=== PATIENT | female | born 1995 | race Caucasian/White ===

== ENCOUNTER 2016-12-17 20:46 | Emergency (ER) | payer OTHER ==
[~2016-12-17] VITALS: Ht 170.2 cm; Wt 54.6 kg
[~2016-12-17 20:46] MED LIST: LEVOTHYROXINE25 MCG PO; MIRALAX17 GM PO; MOTRIN600 MG PO; OXYCODONE HCL5 MG PO; PRILOSEC40 MG PO; ROBAXIN500 MG PO; ULTRAM50 MG PO; ZYRTEC10 M1 PO; [UNRECOGNIZED DRUG - REMARK]; [UNRECOGNIZED DRUG - REMARK]
[2016-12-17 22:09] LABS: HEMATOCRIT 36.9 % (36.0-46.0); MCH 30.3 PG (29.0-34.0); MCHC 33.1 G/DL (30.0-36.0); MCV 91.6 FL (83-99); MEAN PLAT.VOLUME 8.7 uM^3 (9.5-12.4); PLATELET COUNT 310 K/uL (156-360); RBC DIS.WIDTH-CV 12.1 % (11.8-14.6); RBC DIS.WIDTH-SD 40.5 % (39-53); RED BLOOD COUNT 4.03 M/uL (3.80-5.20); WHITE BLOOD COUNT 5.7 K/uL (4.1-10.2)
[2016-12-17 22:20] LABS: CHLORIDE 108 mEq/L (99-109); POTASSIUM 3.9 mEq/L (3.7-5.4); SODIUM 140 mEq/L (136-147)
[2016-12-17 22:22] LABS: GLUCOSE 92 mg/dL (70-99)
[2016-12-17 22:23] LABS: ANION GAP 10 MEQ/L (2-14)
[2016-12-17 22:25] LABS: ADD MIUA? YES; BILIRUBIN NEGATIVE; BLOOD NEGATIVE; COLOR YELLOW ((YELLOW)); GLUCOSE (STRIP) NEGATIVE; KETONES NEGATIVE; LEUKOCYTES NEGATIVE; NITRITE NEGATIVE; PROTEIN (STRIP) NEGATIVE; SPECIFIC GRAVITY 1.017 (1.000-1.030); UROBILINOGEN 0.2 MG/DL (0.2-1.0)
[2016-12-17 22:26] LABS: ALKALINE PHOSPHATASE 39 IU/L (3-129); GFR ESTIMATE (CALCULATED) > 59 mL/min/
[2016-12-17 22:27] LABS: UREA NITROGEN (BUN) 10 mg/dL (9-23)
[2016-12-17 22:34] LABS: QUANTITATIVE HCG < 4.0 MIU/ML
[2016-12-17 22:44] LABS: TOTAL BILIRUBIN 0.2 mg/dL (0.0-1.0)
[2016-12-17 22:55] LABS: AMORPHOUS URATES CRYSTALS 1+; BACTERIA NONE SEEN /HPF; EPITHELIAL CELLS 2+ /HPF; MUCUS NONE SEEN /LPF; RED BLOOD CELLS 0-5 /HPF (0-5); UCUL ADDED? NO; WHITE BLOOD CELLS 0-5 /HPF (0-5)
[2016-12-17] MEDS ORDERED: MODAFINIL200 MG PO (23:04)
[2016-12-17] MEDS ORDERED: NORCO 5/3251 TABLET PO (23:51)
[2016-12-17 23:58] VITALS: BP 110/65
== END 2016-12-18 00:12 | disposition home or self-care (01) ==
LOC: EME 20:46
PROVIDERS: Physician Assistant
DX: R10.2 Pelvic and perineal pain (principal); R10.32 Left lower quadrant pain; M54.5 Low back pain; R20.0 Anesthesia of skin; E03.9 Hypothyroidism, unspecified; Z91.14 Patient's other noncompliance with medication regimen; Z72.0 Tobacco use
CPT/HCPCS: 76857; 80053; 81003; 84443; 84702; 85027; 99281; 99284

== ENCOUNTER 2017-04-09 16:21 | Emergency (ER) | payer OTHER ==
[~2017-04-09] VITALS: Ht 172.7 cm; Wt 56.2 kg
[~2017-04-09 16:21] MED LIST changes: +MODAFINIL200 MG PO; +NORCO 5/3251 TABLET PO
[2017-04-09 17:35] LABS: HEMATOCRIT 35.1 % (36.0-46.0); MCH 30.7 PG (29.0-34.0); MCHC 33.6 G/DL (30.0-36.0); MCV 91.4 FL (83-99); MEAN PLAT.VOLUME 8.7 uM^3 (9.5-12.4); PLATELET COUNT 267 K/uL (156-360); RBC DIS.WIDTH-SD 40.6 % (39-53); RED BLOOD COUNT 3.84 M/uL (3.80-5.20); WHITE BLOOD COUNT 5.7 K/uL (4.1-10.2)
[2017-04-09 17:48] LABS: CHLORIDE 104 mEq/L (99-109); SODIUM 135 mEq/L (136-147)
[2017-04-09 17:51] LABS: GLUCOSE 106 mg/dL (70-99)
[2017-04-09 17:52] LABS: ANION GAP 8 MEQ/L (2-14)
[2017-04-09 17:53] LABS: TOTAL BILIRUBIN 0.2 mg/dL (0.0-1.0)
[2017-04-09 17:54] LABS: ALKALINE PHOSPHATASE 41 IU/L (3-129); GFR ESTIMATE (CALCULATED) > 59 mL/min/
[2017-04-09 17:55] LABS: UREA NITROGEN (BUN) 20 mg/dL (9-23)
[2017-04-09] MEDS ORDERED: VENTOLIN HFA18 GM IH (18:38)
[2017-04-09] MEDS ORDERED: TESSALON200 MG PO (18:38)
[2017-04-09] MEDS ORDERED: MOTRIN800 MG PO (18:38)
[2017-04-09 19:04] VITALS: BP 119/63
== END 2017-04-09 19:05 | disposition home or self-care (01) ==
LOC: EME 16:21
PROVIDERS: Nurse Practitioner Family
DX: R07.89 Other chest pain (principal); J06.9 Acute upper respiratory infection, unspecified; E03.9 Hypothyroidism, unspecified; F17.200 Nicotine dependence, unspecified, uncomplicated
CPT/HCPCS: 71020; 80053; 85027; 93005; 94640; 99281; 99284; J1885

== ENCOUNTER 2018-01-18 16:01 | Emergency (ER) | payer OTHER ==
[~2018-01-18] VITALS: Ht 172.7 cm; Wt 55.7 kg
[~2018-01-18 16:01] MED LIST changes: +AMOXICILLIN500 MG PO; +MOTRIN800 MG PO; +TESSALON200 MG PO; +VENTOLIN HFA18 GM IH
[2018-01-18] MEDS ORDERED: CLEOCIN300 MG PO (17:26)
[2018-01-18] MEDS ORDERED: MOTRIN600 MG PO (17:26)
[2018-01-18] MEDS ORDERED: PERIDEX473 ML MM (17:27)
[2018-01-18 17:34] VITALS: BP 126/94
[2018-01-19] MEDS ORDERED: FLEXERIL10 MG PO (19:12)
== END 2018-01-18 17:54 | disposition home or self-care (01) ==
LOC: EME 16:01
DX: K04.7 Periapical abscess without sinus (principal); K02.9 Dental caries, unspecified; F17.200 Nicotine dependence, unspecified, uncomplicated; K08.409 Partial loss of teeth, unspecified cause, unspecified class
CPT/HCPCS: 99281; 99282

== ENCOUNTER 2018-01-19 18:19 | Emergency (ER) | payer SELFPAY ==
[~2018-01-19] VITALS: Ht 172.7 cm; Wt 55.0 kg
[~2018-01-19 18:19] MED LIST changes: +CLEOCIN300 MG PO; +PERIDEX473 ML MM
[2018-01-19] MEDS ORDERED: FLEXERIL10 MG PO (19:12)
[2018-01-19 19:21] VITALS: BP 110/68
== END 2018-01-19 19:22 | disposition home or self-care (01) ==
LOC: EME 18:19 → EXP 18:19
DX: M62.838 Other muscle spasm (principal); Z88.0 Allergy status to penicillin
CPT/HCPCS: 99281; 99283